=== PATIENT | male | born 1945 | race Caucasian/White ===

== ENCOUNTER 2020-02-29 12:57 | Emergency (ER) | payer OTHER, MEDICARE ==
[~2020-02-29] VITALS: Ht 175.3 cm; Wt 72.7 kg
[2020-02-29] MEDS ORDERED: HYDR12.55 PO (13:25)
[2020-02-29] MEDS ORDERED: LISI-604 PO (13:31)
--- NOTE | 2020-02-29 13:56 | NUR ---
Patient resting comfortably, denies any pain or SOB and states feels "off, but okay. I'm not dizzy though."
--- NOTE | 2020-02-29 16:22 | NUR ---
PATIENT UPDATED ON POC. HE IS RESTING COMFORTABLY WITH NO COMPLAINTS.
--- NOTE | 2020-02-29 16:54 | NUR ---
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
[2020-02-29 17:27] VITALS: BP 141/69
== END 2020-02-29 17:53 | disposition home or self-care (01) ==
LOC: ER 12:58
DX: R06.02 Shortness of breath (principal); R00.1 Bradycardia, unspecified; R42 Dizziness and giddiness; R53.1 Weakness; Z79.899 Other long term (current) drug therapy
CPT/HCPCS: 93005; 99285